=== PATIENT | male | born 1945 | race Caucasian/White ===

== ENCOUNTER 2019-01-08 17:20 | Observation (INO) ==
--- NOTE | 2019-01-08 17:32 | Emergency Department Note ---
Disposition Clinical Impression: New onset atrial fibrillation Disposition: Admitted As Inpatient General Adult HPI - General Stated complaint: tachycardia Time Seen by Provider: 01/08/19 17:24 Source: patient, EMS Mode of arrival: EMS Nursing Notes Reviewed: Yes Vital Signs Reviewed: Yes - History of Present Illness HPI Narrative: Attestation note: Patient was seen with the emergency medicine resident/nurse practitioner/physician academic support assistant/transitional resident/medical student: Dr. NICOLETTE HERNANDEZ I have personally performed a face to face evaluation on this patient. I have reviewed and agree with history and physical examination patient management and disposition. Briefly the salient points of the case are as follows: 74-year-old male patient at the [facility] apparently has been evaluated and worked up for new onset atrial fibrillation. EKG shows atrial fibrillation with rapid ventricular response. Patient has already received bolus dose of Cardizem and placed on drip with rate control. Patient was transferred to [facility] for admission and Cardiologic evaluation. We reviewed the final. Patient's weight is controlled. Patient offers no complaints. Admission disposition pending - Related Data Home Medications Medication Instructions Recorded Confirmed Budesonide/Formoterol 80/4.5 2 puff IH BID 08/12/17 12/29/18 [Symbicort 80/4.5] Cholecalciferol (D-3) [Vitamin D] 1,000 unit PO DAILY 08/12/17 12/29/18 Pravastatin Sodium [Pravachol] 20 mg PO DAILY 08/12/17 12/29/18 Tamsulosin [Flomax] 0.4 mg PO DAILY 08/12/17 12/29/18 glipiZIDE [Glipizide] 2 tab PO BID 08/12/17 12/29/18 hydroCHLOROthiazide 25 mg PO DAILY 08/12/17 12/29/18 [Hydrochlorothiazide] Aspirin [Lo-Dose Aspirin EC] 81 mg PO DAILY 10/28/17 12/29/18 Gabapentin [Gralise] 300 mg PO BID 10/28/17 12/29/18 Losartan Potassium [Cozaar] 50 mg PO DAILY 10/28/17 12/29/18 Sertraline [Zoloft] 100 mg PO DAILY 10/28/17 12/29/18 Previous Rx's Medication Instructions Recorded Amoxicillin/Clavulanate [Augmentin] 875 mg PO BIDWM #20 tablet 12/29/18 predniSONE [PredniSONE] 20 mg PO DAILY #3 tablet 12/29/18 Allergies Allergy/AdvReac Type Severity Reaction Status Date / Time No Known Allergies Allergy Verified 12/29/18 13:23 Past Medical History - Past Medical History Medical history: Reports: COPD, diabetes, hypertension Surgical history: Reports: non-contributory Psychiatric history: Reports: no psych history - Social History Smoking Status: Never smoker Smokeless Tobacco Status: No Alcohol use: Reports: none Drug use: Reports: none
--- NOTE | 2019-01-08 17:36 | Emergency Department Note ---
Disposition Clinical Impression: New onset atrial fibrillation Disposition: Admitted As Inpatient Condition: Fair Time of Disposition: 18:25 General Adult HPI - General Stated complaint: tachycardia Time Seen by Provider: 01/08/19 17:24 Source: patient, EMS Mode of arrival: EMS Limitations: no limitations Nursing Notes Reviewed: Yes Vital Signs Reviewed: Yes - History of Present Illness HPI Narrative: Patient is a 74-year old male who arrived at the ED via EMS for new-onset atrial fibrillation. He was evaluated at the [place] earlier today, where he was noted to be in atrial fibrillation with rapid ventricular rate. He was administered a loading dose of cardizem and started on a cardizem gtt. He was also given 80mg of lovenox prior to transfer to [facility] for admission and further cardiology workup. - Related Data Home Medications Medication Instructions Recorded Confirmed Budesonide/Formoterol 80/4.5 2 puff IH BID 08/12/17 12/29/18 [Symbicort 80/4.5] Cholecalciferol (D-3) [Vitamin D] 1,000 unit PO DAILY 08/12/17 12/29/18 Pravastatin Sodium [Pravachol] 20 mg PO DAILY 08/12/17 12/29/18 Tamsulosin [Flomax] 0.4 mg PO DAILY 08/12/17 12/29/18 glipiZIDE [Glipizide] 2 tab PO BID 08/12/17 12/29/18 hydroCHLOROthiazide 25 mg PO DAILY 08/12/17 12/29/18 [Hydrochlorothiazide] Aspirin [Lo-Dose Aspirin EC] 81 mg PO DAILY 10/28/17 12/29/18 Gabapentin [Gralise] 300 mg PO BID 10/28/17 12/29/18 Losartan Potassium [Cozaar] 50 mg PO DAILY 10/28/17 12/29/18 Sertraline [Zoloft] 100 mg PO DAILY 10/28/17 12/29/18 Previous Rx's Medication Instructions Recorded Amoxicillin/Clavulanate [Augmentin] 875 mg PO BIDWM #20 tablet 12/29/18 predniSONE [PredniSONE] 20 mg PO DAILY #3 tablet 12/29/18 Allergies Allergy/AdvReac Type Severity Reaction Status Date / Time No Known Allergies Allergy Verified 12/29/18 13:23 All systems ED: reviewed and negative except as stated. Constitutional: Denies: fever, chills, weakness, weight change Eyes: Denies: eye pain, eye discharge, vision change Cardiovascular: Denies: chest pain, palpitations, syncope Respiratory: Denies: cough, dyspnea, wheezes, hemoptysis, stridor Past Medical History - Past Medical History Medical history: Reports: COPD, diabetes, hypertension Surgical history: Reports: non-contributory Psychiatric history: Reports: no psych history - Social History Smoking Status: Never smoker Smokeless Tobacco Status: No Alcohol use: Reports: none Drug use: Reports: none Physical Exam - General Limitations: no limitations General appearance: alert, in no apparent distress - Head Head exam: atraumatic, normocephalic, normal inspection - Eye Eye exam: Present: normal appearance, PERRL, EOMI - Neck Neck exam: Present: normal inspection, full ROM, trachea midline - Chest Chest inspection: Present: normal inspection, symmetric chest wall rise - Respiratory Respiratory exam: Present: normal lung sounds bilaterally - Cardiovascular Cardiovascular exam: Present: regular rate, normal rhythm, normal heart sounds Course Course Narrative: Vital signs, laboratory studies, and EKG from [place] reviewed. We will obtain a repeat EKG here in the emergency department. Anticipate hospital admission for further cardiology evaluation. Patient is agreeable with this plan. Case was discussed with hospitalist, Dr. Mejia, who accepted the patient for admission. Vital Signs Temperature 97.9 F 01/08/19 17:34 Pulse Rate 76 01/08/19 17:34 Respiratory Rate 16 01/08/19 17:34 Blood Pressure 110/68 01/08/19 17:34 O2 Sat by Pulse Oximetry 94 01/08/19 17:34 Temperature 98.0 F 01/08/19 18:18 Pulse Rate 74 01/08/19 18:18 Respiratory Rate 18 01/08/19 18:18 Blood Pressure 122/79 01/08/19 18:18 O2 Sat by Pulse Oximetry 95 01/08/19 18:18 Oxygen Delivery Oxygen Delivery Room Air
[2019-01-08] MEDS ORDERED: Dextrose Gel 15 GM/37.5 ML TUBE PO PRN ×2 (20:49)
[2019-01-08] MEDS ORDERED: *HR* Dextrose 50 % in Water (Syg) 50 ML SYRINGE IVP PRN (20:49)
--- NOTE | 2019-01-08 20:55 | Internal Med History&Physical ---
Date of Encounter: 01/08/19 Time of Encounter: 20:54 Internal Medicine - H&P: HPI Chief complaint: high heart rate Admitted From: Home Plans for Post Hospital Care: Home History of present illness: Porter Castro is a 74-year-old morbidly obese male with hypertension and diabetes who went to the [facility] earlier today for a clinic appointment and was found to be in atrial fibrillation with rapid ventricular response. He was sent to their ER where he received a diltiazem bolus followed by a drip and was also given a shot of Lovenox apparent. He was transferred here for further evaluation. My assessment he is lying in bed comfortably and tells me that he has noticed his heart rate being elevated over the last 10 days as he checks his blood pressure with the machine daily for he takes his antihypertensive. He states he has been told in the past he has an irregular heartbeat but not exactly that it was atrial fibrillation or such. He denies any chest pain or shortness of breath. On my review of his current EKG, it appears he is in atrial flutter with a 3:1/4:1 block. Review of prior EKGs showed that he has had first-degree AV blocks, right bundle branch blocks as well as premature atrial complexes. Vitals: Reviewed General: Elderly and obese white male lying in bed in no acute distress. Skin: Warm and supple. HEENT: Moist mucous membranes. No conjunctivae pallor. Neck: No lymphadenopathy. No JVD. No carotid bruits. No palpable thyroid. Chest: Normal thoracic expansion. Normal breath sounds. Clear to auscultation. Heart: Irregularly irregular with no pulse deficit. Abdomen: Protuberant, soft and non-tender to palpation. No peritoneal reaction. Extremities: No clubbing, cyanosis or edema. No calf tenderness. Normal distal pulses. Neurological: Awake, alert and oriented to person, place and time. No focal deficits. Psych: Affect appropriate. Past Med Surg Social Fam HX - Past Medical History Medical history: COPD, diabetes, hypertension Additional medical history: neuropathy. venous insufficiency. PVD Psychiatric history: no psych history - Past Surgical History Surgical History: non-contributory Additional surgical history: PARTIAL THYROIDECTOMY - Social History Smoking Status: Never smoker Smokeless Tobacco Status: No Alcohol use: none Drug use: none Internal Medicine - H&P: Meds Budesonide/Formoterol 80/4.5 [Symbicort 80/4.5] 2 puff IH BID 08/12/17 [History] Cholecalciferol (D-3) [Vitamin D] 4,000 unit PO DAILY 08/12/17 [History] Pravastatin Sodium [Pravachol] 20 mg PO DAILY 08/12/17 [History] Tamsulosin [Flomax] 0.4 mg PO DAILY 08/12/17 [History] glipiZIDE [Glipizide] 2 tab PO BID 08/12/17 [History] hydroCHLOROthiazide [Hydrochlorothiazide] 25 mg PO DAILY 08/12/17 [History] Aspirin [Lo-Dose Aspirin EC] 81 mg PO DAILY 10/28/17 [History] Gabapentin [Gralise] 300 mg PO BID 10/28/17 [History] Losartan Potassium [Cozaar] 50 mg PO DAILY 10/28/17 [History] Sertraline [Zoloft] 100 mg PO DAILY 10/28/17 [History] Cyanocobalamin (B-12) [Vitamin B12] 1,000 mcg PO DAILY 01/08/19 [History] Metformin HCl 1,000 mg PO BIDWM 01/08/19 [History] Metoprolol XL (24 HR) Succ [Toprol XL] 12.5 mg PO DAILY 01/08/19 [History] Urea 1 gm TP BID PRN 01/08/19 [History] Allergy/AdvReac Type Severity Reaction Status Date / Time No Known Allergies Allergy Verified 12/29/18 13:23 All Systems PM: A 10-system review of systems was performed and is negative for pertinent findings except as documented above in the HPI. Family history reviewed and found non-contributory. - Constitutional Vitals: Temp Pulse Resp BP Pulse Ox 98.0 F 74 19 122/73 95 01/08/19 18:18 01/08/19 18:18 01/08/19 20:24 01/08/19 20:24 01/08/19 18:18 Exam: . - Assessment and Plan (1) Atrial fibrillation and flutter Current Visit: Yes Status: Acute Assessment and plan: [id number] score of 3. Received 1 dose of LMWH prior to transfer here. Current heart rate is controlled and therefore will not continue with diltiazem drip. Will start oral medications tonight and place on rivaroxaban. Cardiology consult recommended. (2) Diabetes mellitus Current Visit: Yes Status: Chronic Assessment and plan: Will place on insulin sliding scale. Qualifiers: Diabetes mellitus type: type 2 Diabetes mellitus penitentiary insulin use: without penitentiary use Diabetes mellitus complication status: with unspecified complications Qualified Code(s): E11.8 - Type 2 diabetes mellitus with unspecified complications (3) HTN (hypertension) Current Visit: Yes Status: Acute Assessment and plan: Will resume home oral antihypertensive therapy once reconciled. Qualifiers: Hypertension type: essential hypertension Qualified Code(s): I10 - Essential (primary) hypertension (4) Obesity Current Visit: Yes Status: Acute Assessment and plan: Counseled and educated on therapeutic lifestyle changes for weight loss as it will be of benefit in controlling comorbidities. Teacher Hearing Impaired evaluation advised. Qualifiers: Obesity type: due to excess calories Obesity classification: adult class 3 (BMI >= 40) Serious obesity comorbidity presence: with serious comorbidity Body mass index: BMI 40.0-44.9 Qualified Code(s): E66.01 - Morbid (severe) obesity due to excess calories; Z68.41 - Body mass index (BMI) 40.0-44.9, adult - Time Spent With Patient Total time spent is greater than 50% in coordination of care (as documented) at patient's floor/unit and/or counseling patient: Greater than 35 minutes
[2019-01-08 21:20] LABS: Basophils % 0.3 %; Eosinophils % 0.1 %; Hematocrit 39.8 % (37.5-50.1); Hemoglobin 13.1 g/dL (12.9-16.9); Immature Granulocytes % 0.5 % (0-4); Lymphocytes # 1.8 K/mcL (0.6-4.6); Lymphocytes % 24.7 %; Mean Corpuscular HGB Conc 32.9 g/dL (31.6-35.5); Mean Corpuscular Hemoglobin 29.6 pg (28.0-33.3); Mean Platelet Volume 11.3 fL (9.4-12.4); Monocytes # 0.8 K/mcL (0.0-1.3); Monocytes % 11.2 %; Neutrophils # 4.6 K/mcL (1.6-8.9); Platelet Count 243 K/mcL (140-400); Red Blood Count 4.42 M/mcL (4.19-5.50); Red Cell Distribution Width 13.7 % (11.5-14.5); Segmented Neutrophils % 63.2 %
[2019-01-08] MEDS: Insulin LISPRO 300 UNITS/3 ML VIAL SQ SCH (21:24)
[2019-01-08] MEDS: Gabapentin 300 MG CAPSULE PO SCH (21:24)
[2019-01-08 21:27] LABS: INR 1.1
[2019-01-08 21:28] LABS: Heparin anti-factor XA LMWH 0.23 IU/mL (0.50-1.10); Heparin anti-factor XA UFH 0.23 IU/mL (0.30-0.70)
[2019-01-08 21:30] LABS: Activated Partial Thrombo Time 31.8 Seconds (26.0-36.0)
[2019-01-08 21:38] LABS: BUN/Creatinine Ratio 18 (6-26); Blood Urea Nitrogen 13 mg/dL (8-23); Calcium 9.2 mg/dL (8.6-10.3); Carbon Dioxide 26 mEq/L (23-29); Chloride 104 mEq/L (98-107); Glucose 134 mg/dL (70-105); Osmolality,Calculated 288 (280-300); Potassium 3.5 mEq/L (3.5-5.1); Sodium 138 mEq/L (136-145); eGFR For Non-African Americans > 60 (> 60)
[2019-01-08 21:39] LABS: Magnesium 1.9 mg/dL (1.6-2.6); Troponin I < 0.03 ng/mL (< 0.04)
[2019-01-08 21:52] LABS: Thyroid Stimulating Hormone 0.301 mcIU/mL (0.340-5.600)
[2019-01-08] MEDS: Budesonide/Formoterol 80/4.5 MDI IH SCH (22:26)
[2019-01-09] MEDS ORDERED: 0.9 % Sodium Chloride 1,000 ML ONE (01:00)
[2019-01-09] MEDS ORDERED: Enoxaparin Weight Dosing SQ SCH (06:00)
[2019-01-09] MEDS: Budesonide/Formoterol 80/4.5 MDI IH SCH ×2 (07:42→21:08)
--- NOTE | 2019-01-09 08:16 | Cardiology Consult Note ---
Addendum entered and electronically signed by Dru De Jesus DO 01/09/19 13:09: Updated Assessment and Plan (1) (HFpEF) heart failure with reduced ejection fraction Current Visit: No Status: Chronic Echo revealed LVEF 35%, moderate global LV systolic dysfunction, mildly dilated left ventricle, indeterminate diastolic function, there is no LV thrombus. Definity echo contrast was used. RV is mildly dilated with moderate systolic dysfunction. Bi-atrial enlargement. Mild-moderate mitral regurgitation. Mild- moderate tricuspid regurgitation. Mild pulmonary hypertension. Since prior echo, 05/14/2016, current findings are new. Echo findings are concerning for ischemia. Continue home beta howard, ARB, and HCTZ. Start Heparin drip, bridging to Coumadin. NPO after midnight, anticipate [facility] tomorrow. Qualifiers: Heart failure chronicity: chronic Qualified Code(s): Chronic systolic (congestive) heart failure Addendum entered and electronically signed by Dru De Jesus DO 01/09/19 13:07: Given the patient's elevated BMI > 40, will not recommend Xarelto for A. fib anticoagulation. Patient agreed to starting Coumadin instead. Pharmacy to dose. Original Note: <Dru De Jesus - Last Filed: 01/09/19 10:43> Date of Encounter: 01/09/19 Time of Encounter: 08:13 Assessment and Plan (1) New onset atrial fibrillation Current Visit: Yes Status: Acute [facility]. Current heart rate is in the 70s status post Cardizem administration in the ED. [facility] 10/31/18: Minimal atherosclerotic coronary artery disease. Echo pending [id number] Score 5 (age, CHF, hypertension, diabetes, vascular disease) Patient was started on Xarelto for anticoagulation. Continue home dose of Metoprolol. (2) (HFpEF) heart failure with preserved ejection fraction Current Visit: No Status: Chronic Echo 05/14/16 revealed technically challenging study due to suboptimal image quality and frequent ventricular ectopy in a bigeminal pattern, LV systolic function appears low normal, EF 50-55%, evidence of mild diastolic dysfunction of the left ventricle, moderately dilated RV with normal function, mildly dilated RA and LA, mild tricuspid regurgitation, estimated RVSP was 32 mmHg, and no pulmonary hypertension. Repeat Echo pending Continue home beta howard, ARB, and HCTZ. Qualifiers: Heart failure chronicity: chronic Qualified Code(s): I50.32 - Chronic diastolic (congestive) heart failure (3) History of partial thyroidectomy Current Visit: Yes Status: Acute Patient with history of partial thyroidectomy due to thyroid nodule. TSH level 0.301 Management per primary team (4) HTN (hypertension) Current Visit: No Status: Chronic Blood pressure controlled. Continue home beta howard, ARB, and HCTZ. Qualifiers: Hypertension type: essential hypertension Qualified Code(s): I10 - [place] l (primary) hypertension (5) Hyperlipidemia Current Visit: No Status: Chronic Continue statin. Qualifiers: Hyperlipidemia type: unspecified Qualified Code(s): E78.5 - Hyperlipidemia, unspecified (6) Diabetes mellitus Current Visit: Yes Status: Chronic Management per primary team. Qualifiers: Diabetes mellitus type: type 2 Diabetes mellitus rat exterminator insulin use: without rat exterminator use Diabetes mellitus complication status: with unspecified complications Qualified Code(s): E11.8 - Type 2 diabetes mellitus with unspecified complications (7) Morbid obesity with BMI of 40.0-44.9, adult Current Visit: Yes Status: Chronic Lifestyle modification. (8) CHASIDY on CPAP Current Visit: Yes Status: Chronic Recommend optimizing treatment for CHASIDY in setting of new-onset A. fib. He wears a CPAP at night. Discussion w patient/family: The assessment and plan as outlined above was discussed with the patient and/or family members who expressed understanding and agreement. All questions were answered. Thank you for involving us in the care of your patient. Please call with any questions. History of Present Illness Consult date: 01/08/19 Requesting physician: Glenroy Sandoval Consult reason: New-onset atrial flutter/fibrillation Chief complaint: High heart rate History of present illness: Mr. Castro is a 74 [facility] with a past medical history hypertension, hyperlipidemia, diastolic CHF, peripheral vascular disease, diabetes mellitus type 2, CHASIDY on CPAP, and morbid obesity who was transferred from the [facility] secondary to A. fib RVR. Patient reports a history of irregular heart rhythm in the past and states his heart rate has been racing for the past 10 days. He was started on Augmentin and Prednisone for bronchitis 10 days ago at urgent care. Patient any current fever, chills, chest pain, shortness of breath, or leg swelling. Current heart rate is in the 70s status post Cardizem administration in the ED. Since admission, patient was started on Xarelto for anticoagulation and his home dose of Metoprolol was resumed. Repeat echo was ordered and cardiology was consulted for further recommendations. Previous testing: [facility] 10/31/18: Minimal atherosclerotic coronary artery disease. TTE 05/14/16 revealed technically challenging study due to suboptimal image qualit y and frequent ventricular ectopy in a bigeminal pattern, LV systolic function appears low normal, EF 50-55%, evidence of mild diastolic dysfunction of the left ventricle, moderately dilated RV with normal function, mildly dilated RA and LA, mild tricuspid regurgitation, estimated RVSP was 32 mmHg, and no pulmonary hypertension. Holter monitoring 09/19/17: Diary retured without symptoms, frequent PVCs, 8 brief episodes of NSVT, longest 3 beats, rare PACs. Average HR 76 bpm. No significant bradycardia. Past Med Surg Social Fam HX - Past Medical History Medical history: COPD, diabetes, hypertension Additional medical history: neuropathy. venous insufficiency. PVD Psychiatric history: no psych history - Past Surgical History Surgical History: non-contributory Additional surgical history: PARTIAL THYROIDECTOMY - Social History Smoking Status: Never smoker Smokeless Tobacco Status: No Alcohol use: none Drug use: none - Family History Mother Adopted: No Living Status: Cause of : cancer Hx Family Cardiac Disorders: Yes (dad unknown) Hx Family Respiratory Disorders: No Hx Family Cancer: Yes (mother unknown) Hx Family GI Disorders: No Hx Family Genitourinary Disorders: No Hx Family Endocrine Disorder: Yes (aunt thyroid disease) Hx Family Musculoskeletal Disorders: No Hx Family Neuromuscular Disorders: No Hx Family Neurologic Disorders: No Hx Family HEENT Disorders: No Hx Family Autoimmune Disorders: No Hx Family Reproductive Disorders: No Hx Family Psychosocial Disorders: No Hx Family Medical Disorders: No Father Living Status: Medications and Allergies Budesonide/Formoterol 80/4.5 [Symbicort 80/4.5] 2 puff IH BID 08/12/17 [History] Cholecalciferol (D-3) [Vitamin D] 4,000 unit PO DAILY 08/12/17 [History] Pravastatin Sodium [Pravachol] 20 mg PO DAILY 08/12/17 [History] Tamsulosin [Flomax] 0.4 mg PO DAILY 08/12/17 [History] glipiZIDE [Glipizide] 2 tab PO BID 08/12/17 [History] hydroCHLOROthiazide [Hydrochlorothiazide] 25 mg PO DAILY 08/12/17 [History] Aspirin [Lo-Dose Aspirin EC] 81 mg PO DAILY 10/28/17 [History] Gabapentin [Gralise] 300 mg PO BID 10/28/17 [History] Losartan Potassium [Cozaar] 50 mg PO DAILY 10/28/17 [History] Sertraline [Zoloft] 100 mg PO DAILY 10/28/17 [History] Cyanocobalamin (B-12) [Vitamin B12] 1,000 mcg PO DAILY 01/08/19 [History] Metformin HCl 1,000 mg PO BIDWM 01/08/19 [History] Metoprolol XL (24 HR) Succ [Toprol XL] 12.5 mg PO DAILY 01/08/19 [History] Urea 1 gm TP BID PRN 01/08/19 [History] Allergy/AdvReac Type Severity Reaction Status Date / Time No Known Allergies Allergy Verified 12/29/18 13:23 All Systems Review: The remainder of the systems were reviewed and are negative - Constitutional Constitutional: fatigue, no chills, no fever(s), no malaise - EENT Nose, mouth and throat: no dysphagia, no sore throat - Cardiovascular Cardiovascular: irregular heart rhythm, palpitations, rapid heart rate, no chest pain at rest, no chest pain with exertion, no diaphoresis, no dyspnea at rest, no dyspnea on exertion, no lightheadedness - Respiratory Respiratory: no cough, no dyspnea - Gastrointestinal Gastrointestinal: no abdominal pain, no diarrhea, no nausea - Genitourinary Genitourinary: no dysuria, no hematuria - Musculoskeletal Musculoskeletal: no back pain, no myalgias - Integumentary Integumentary: no erythema, no rash - Neurological Neurological: no dizziness, no numbness, no syncope - Psychiatric Psychiatric: no anxiety, no depression - Hematological/Lymphatic Hematologic/Lymphatic: no easy bleeding, no easy bruising Physical Examination Vital Signs, Last 4 Hours Temp Pulse Resp BP Pulse Ox 01/09/19 05:12 97.9 F 64 18 108/66 96 General: Conversant, No Apparent Distress (Morbidly obese) HEENT: Atraumatic, Normocephaly, Mucus Membranes Moist Neck: No JVD, Normal carotid pulses Cardiac: Normal S1 and S2, No Murmur Lungs: Normal Breath Sounds, No Wheeze, Rales, Rhonchi Neuro: Alert and responsive, No focal deficits noted Abdomen: Soft Skin: No rashes noted on visualized skin, Other (small 0.5 cm abrasion dorasl right foot, well-healed) Musculoskeletal: No Chest Wall Tenderness Extremities: No Clubbing, No Cyanosis, No Edema, Normal Pulses Results 01/08/19 20:57 01/08/19 20:57 Lab Results 01/08/19 01/08/19 01/08/19 20:57 20:57 20:57 WBC 7.3 Hgb 13.1 Hct 39.8 Plt Count 243 INR 1.1 APTT 31.8 Sodium 138 Potassium 3.5 Chloride 104 Carbon Dioxide 26 BUN 13 Creatinine 0.72 Glucose 134 H Calcium 9.2 Magnesium Troponin I < 0.03 TSH 01/08/19 20:57 WBC Hgb Hct Plt Count INR APTT Sodium Potassium Chloride Carbon Dioxide BUN Creatinine Glucose Calcium Magnesium 1.9 Troponin I TSH 0.301 L - Imaging and Cardiology Chest Xray: report reviewed - EKG Interpretation EKG results cardiology: personally reviewed (Atrial flutter HR 81, RBBB) Consult Discharge Plan - Plan [facility]Primary Care Provider[facility] - < A - Last Filed: 01/09/19 13:43> Date of Encounter: 01/09/19 - Attending Attestation I have personally performed a face to face evaluation on this patient. I have reviewed and agree with the documented findings and care plan as documented by the resident. History and Exam by me shows: 74-year-old pleasant gentleman with history of nonobstructive CAD with most recent cath being October 2017, hypertension, diabetes, admitted for A. fib with RVR Morbidly obese, AAOX3 in NAD at the bedside Hemodynamically stable Cardiopulmonary exam revealed S1, S2, no murmur; clear lungs Rhythm reviewed - a flutter with variable block, no acute ST T changes Echo revealed LVEF of 35%, mild to moderate MR and TR Impression/plan: A. flutter. Now rate controlled. Continue rate control with Toprol, Coumadin for long-term anticoagulation given BMI of > 40 New LV dysfunction. Possibly from tachycardia-induced cardiomyopathy however we need to rule out coronary ischemia. Recommend left heart catheterization prior to discharge. If LHC is not remarkable, recommend FORREST cardioversion for A. fib Morbid Obesity/ sleep disordered breathing. We need sleep study as outpatient Thanks, Mitchell Ramos MD [facility] Assessment and Plan Discussion w patient/family: The assessment and plan as outlined above was discussed with the patient and/or family members who expressed understanding and agreement. All questions were answered. Thank you for involving us in the care of your patient. Please call with any questions. History of Present Illness History of present illness: Mr. Castro is a 74 year old male All Systems Review: The remainder of the systems were reviewed and are negative Physical Examination Vital Signs, Last 4 Hours Temp Pulse Resp BP Pulse Ox 01/09/19 11:00 97.6 F 81 20 111/72 94 Results 01/08/19 20:57 01/08/19 20:57 Lab Results 01/08/19 01/08/19 01/08/19 20:57 20:57 20:57 WBC 7.3 Hgb 13.1 Hct 39.8 Plt Count 243 INR 1.1 APTT 31.8 Sodium 138 Potassium 3.5 Chloride 104 Carbon Dioxide 26 BUN 13 Creatinine 0.72 Glucose 134 H Calcium 9.2 Magnesium Troponin I < 0.03 TSH 01/08/19 20:57 WBC Hgb Hct Plt Count INR APTT Sodium Potassium Chloride Carbon Dioxide BUN Creatinine Glucose Calcium Magnesium 1.9 Troponin I TSH 0.301 L
[2019-01-09] MEDS: Insulin LISPRO 300 UNITS/3 ML VIAL SQ SCH ×4 (09:19→21:24)
[2019-01-09] MEDS: Cholecalciferol (D-3) 1,000 UNIT TABLET PO SCH (09:20)
[2019-01-09] MEDS: Metoprolol XL (24 HR) Succ 25 MG TAB.ER.24H PO SCH (09:20)
[2019-01-09] MEDS: Aspirin Enteric Coated 81 MG Tablet PO SCH (09:20)
[2019-01-09] MEDS: hydroCHLOROthiazide 25 MG TABLET PO SCH (09:20)
[2019-01-09] MEDS: Gabapentin 300 MG CAPSULE PO SCH ×2 (09:20→20:09)
[2019-01-09] MEDS ORDERED: Perflutren Lipid Microsphere 1.3 ML in 0.9 % Sodium Chloride 8.7 ML IVP ONE (10:30)
[2019-01-09] MEDS ORDERED: *HR* Heparin 5,000 UNIT/ML VIAL IVP ONE (13:19)
[2019-01-09] MEDS ORDERED: *HR* Heparin 5,000 UNIT/ML VIAL IVP PRN (13:19)
[2019-01-09 13:52] LABS: Hematocrit 36.8 % (37.5-50.1); Hemoglobin 12.4 g/dL (12.9-16.9); Mean Corpuscular HGB Conc 33.7 g/dL (31.6-35.5); Mean Corpuscular Hemoglobin 30.2 pg (28.0-33.3); Mean Corpuscular Volume 89.8 fL (83.0-100.0); Mean Platelet Volume 11.2 fL (9.4-12.4); Platelet Count 230 K/mcL (140-400); Red Cell Distribution Width 13.7 % (11.5-14.5)
[2019-01-09 14:03] LABS: INR 1.1; Prothrombin Time 12.5 Seconds (9.4-12.1)
[2019-01-09] MEDS: Heparin 25,000 UNIT/250 ML D5W 25,000 UNIT/250 ML IV.SOLN IVC SCH (14:15)
[2019-01-09] MEDS ORDERED: *HR* Rivaroxaban 10 MG TABLET PO SCH (17:00)
[2019-01-09] MEDS ORDERED: *HR* Warfarin 5 MG TABLET PO ONE (18:00)
[2019-01-09] MEDS ORDERED: Warfarin perPT PO PRN (18:00)
--- NOTE | 2019-01-09 19:30 | Internal Med Progress Note ---
Hospitalist Progress Note - Encounter Date of Encounter: 01/09/19 Time of Encounter: 11:00 - Subjective Interval History: Patient presented with new onset of A. fib with RVR found to have ascending reduced heart failure ejection fraction on echocardiogram. - Exam Vitals: Temp Pulse Resp BP Pulse Ox 97.5 F L 64 20 109/80 94 01/09/19 15:38 01/09/19 15:38 01/09/19 15:38 01/09/19 15:38 01/09/19 15:38 Exam: Gen.: Nonacute distress, alert and oriented 3 ENT: Mucosal membranes moist Respiratory: Lungs are clear to auscultation bilaterally without any wheezing rhonchi or rales Cardiovascular: Normal S1 and S2 regular rate rhythm no murmurs rubs or gallops Abdomen: Soft, nontender and nondistended with positive bowel sounds Extremities: No lower extremity edema Skin: Normal color . - Assessment and Plan (1) New onset atrial fibrillation Current Visit: Yes Status: Acute Assessment and Plan: Cardiology consulted with recommendations to continue heparin drip (2) Diabetes mellitus Current Visit: Yes Status: Chronic Assessment and Plan: Continue insulin sliding scale. (3) HTN (hypertension) Current Visit: No Status: Chronic Assessment and Plan: Continue home meds. (4) Morbid obesity with BMI of 40.0-44.9, adult Current Visit: Yes Status: Chronic Assessment and Plan: BMI of 43.8 (5) Hyperlipidemia Current Visit: No Status: Chronic Assessment and Plan: Continue statin (6) History of partial thyroidectomy Current Visit: Yes Status: Acute Assessment and Plan: Will consider initiating levothyroxine for low TSH (7) (HFpEF) heart failure with preserved ejection fraction Current Visit: No Status: Chronic Assessment and Plan: Patient was found to have repeat use ejection fraction compared to last echocardiogram with recommendations for left heart catheterization per cardiology (8) CHASIDY on CPAP Current Visit: Yes Status: Chronic Assessment and Plan: CPAP at night DVT Prophylaxis: On heparin drip - Time Spent with Patient Total time spent is greater than 50% in coordination of care (as documented) at patient's floor/unit and/or counseling patient: Internal Medicine: Result - Labs CBC & Chem 7: 01/09/19 13:30 01/08/19 20:57 Labs: Short CBC 01/08/19 01/09/19 Range/Units 20:57 13:30 WBC 7.3 6.2 (4.3-11.1) K/mcL Hgb 13.1 12.4 L (12.9-16.9) g/dL Hct 39.8 36.8 L (37.5-50.1) % Plt Count 243 230 (140-400) K/mcL Neutrophils # 4.6 (1.6-8.9) K/mcL BMP 01/08/19 20:57 Sodium 138 Potassium 3.5 Chloride 104 Carbon Dioxide 26 BUN 13 Creatinine 0.72 Glucose 134 H Calcium 9.2 Cardiac Enzymes 01/08/19 Range/Units 20:57 Troponin I < 0.03 (< 0.04) ng/mL - ABG Interpretation ABG results: PT/INR, D-dimer PT 12.5 Seconds (9.4-12.1) H 01/09/19 13:30 - Impressions Impressions Echocardiogram 01/09/19 10:00 Impressions: LVEF 35%. Moderate global LV systolic dysfunction. Mildly dilated left ventricle. Indeterminate diastolic function. There is no LV thrombus. Definity echo contrast was used. RV is mildly dilated with moderate systolic dysfunction. Bi-atrial enlargement. Mild-moderate mitral regurgitation. Mild-moderate tricuspid regurgitation. Mild pulmonary hypertension. Since prior echo, 05/14/2016, current findings are new. Findings: Study Quality * Technically adequate exam. ECG Findings * Atrial flutter. Left Ventricle * LVEF 35%. * Mildly dilated left ventricle. * Indeterminate diastolic function. * There is no LV thrombus. * Definity echo contrast was used. Right Ventricle * RV is mildly dilated with moderate systolic dysfunction. Left Atrium * Moderate-severely dilated left atrium. Right Atrium * Moderately dilated right atrium. Aortic Valve * No aortic regurgitation. * Trileaflet aortic valve. * No aortic stenosis. Mitral Valve * Normal mitral valve structure. * No mitral stenosis. * Mild-moderate mitral regurgitation. Tricuspid Valve * Tricuspid valve not well visualized. * Mild-moderate tricuspid regurgitation. * Estimated RA pressure is 20 mmHg. * Estimated RVSP is 41 mmHg. * Mild pulmonary hypertension. Pulmonic Valve * Pulmonic valve is not well visualized. * No pulmonic stenosis. * No pulmonic regurgitation. Pulmonary Artery * Pulmonary artery not well visualized. Aorta * Normally sized aortic root. Pericardium * There is no pericardial effusion present. Interatrial Septum * No evidence of PFO by color Doppler. IVC * < 50% respiratory change. * The IVC is dilated. Consult Discharge Plan - Plan [facility]errals: [facility] [Primary Care Provider] - (2) Diabetes mellitus Qualifiers: Diabetes mellitus type: type 2 Diabetes mellitus mcc insulin use: without welding operator use Diabetes mellitus complication status: with unspecified complications Qualified Code(s): E11.8 - Type 2 diabetes mellitus with unspecified complications (3) HTN (hypertension) Qualifiers: Hypertension type: essential hypertension Qualified Code(s): I10 - Essential (primary) hypertension (5) Hyperlipidemia Qualifiers: Hyperlipidemia type: unspecified Qualified Code(s): E78.5 - Hyperlipidemia, unspecified (7) (HFpEF) heart failure with preserved ejection fraction Qualifiers: Heart failure chronicity: chronic Qualified Code(s): I50.32 - Chronic diastolic (congestive) heart failure
[2019-01-09] MEDS: *HR* Heparin 5,000 UNIT/ML VIAL IVP PRN (22:15)
[2019-01-10 05:40] LABS: INR 1.1; Prothrombin Time 12.1 Seconds (9.4-12.1)
[2019-01-10] MEDS: *HR* Heparin 5,000 UNIT/ML VIAL IVP PRN (05:55)
[2019-01-10] MEDS ORDERED: Heparin 25,000 UNIT/250 ML D5W 25,000 UNIT/250 ML IV.SOLN IVC SCH (06:15)
[2019-01-10 07:40] LABS: Basophils % 0.3 %; Eosinophils % 0.2 %; Hematocrit 39.3 % (37.5-50.1); Hemoglobin 13.1 g/dL (12.9-16.9); Immature Granulocytes % 0.5 % (0-4); Lymphocytes # 1.5 K/mcL (0.6-4.6); Lymphocytes % 25.2 %; Mean Corpuscular HGB Conc 33.3 g/dL (31.6-35.5); Mean Corpuscular Volume 90.1 fL (83.0-100.0); Mean Platelet Volume 11.1 fL (9.4-12.4); Monocytes # 0.7 K/mcL (0.0-1.3); Monocytes % 12.5 %; Neutrophils # 3.6 K/mcL (1.6-8.9); Platelet Count 217 K/mcL (140-400); Red Blood Count 4.36 M/mcL (4.19-5.50); Red Cell Distribution Width 13.6 % (11.5-14.5); Segmented Neutrophils % 61.3 %
[2019-01-10 07:51] LABS: BUN/Creatinine Ratio 15 (6-26); Blood Urea Nitrogen 10 mg/dL (8-23); Calcium 9.2 mg/dL (8.6-10.3); Carbon Dioxide 28 mEq/L (23-29); Chloride 103 mEq/L (98-107); Glucose 172 mg/dL (70-105); Osmolality,Calculated 291 (280-300); Potassium 3.9 mEq/L (3.5-5.1); Sodium 139 mEq/L (136-145); eGFR For Non-African Americans > 60 (> 60)
[2019-01-10] MEDS: Budesonide/Formoterol 80/4.5 MDI IH SCH ×2 (07:57→20:06)
[2019-01-10] MEDS: Cholecalciferol (D-3) 1,000 UNIT TABLET PO SCH (09:06)
[2019-01-10] MEDS: Gabapentin 300 MG CAPSULE PO SCH ×2 (09:06→21:19)
[2019-01-10] MEDS: hydroCHLOROthiazide 25 MG TABLET PO SCH (09:06)
[2019-01-10] MEDS: Metoprolol XL (24 HR) Succ 25 MG TAB.ER.24H PO SCH (09:06)
[2019-01-10] MEDS: Aspirin Enteric Coated 81 MG Tablet PO SCH (09:06)
[2019-01-10] MEDS: Heparin 25,000 UNIT/250 ML D5W 25,000 UNIT/250 ML IV.SOLN IVC SCH ×2 (09:06→09:13)
[2019-01-10] MEDS: Insulin LISPRO 300 UNITS/3 ML VIAL SQ SCH ×4 (09:15→21:16)
[2019-01-10] MEDS ORDERED: *HR* Heparin 10,000 UNIT/10 ML VIAL ONE (09:34)
[2019-01-10] MEDS ORDERED: Heparin 1,000 UNITS/500 mL 500 ML ONE (09:34)
[2019-01-10] MEDS ORDERED: 0.9 % Sodium Chloride 1,000 ML ONE (09:35)
[2019-01-10] MEDS ORDERED: Nitroglycerin 1,000 MCG/10 ML VIAL IV ONE (09:35)
[2019-01-10] MEDS ORDERED: Verapamil 5 MG/2 ML VIAL ONE (09:42)
[2019-01-10] MEDS ORDERED: *HR* FentaNYL (PF) 100 MCG/2 ML VIAL ONE (10:25)
[2019-01-10] MEDS ORDERED: *HR* Midazolam HCl 2 MG/2 ML VIAL ONE (10:25)
--- NOTE | 2019-01-10 10:29 | Pre-Sedation Evaluation ---
Pre-sedation evaluation - Pre-sedation checklist Date of procedure: 01/10/19 Procedure: [facility] Recent Vitals: Last Vital Signs Temp 97.5 F L 01/10/19 07:33 Pulse 69 01/10/19 07:33 Resp 14 01/10/19 07:59 BP 110/66 01/10/19 07:33 Pulse Ox 95 01/10/19 07:59 H&P (including ROS) documented in medical record: Yes Previous reaction to sedatives/anesthetics: No Dietary Status: NPO after Midnight Dentition: No loose teeth or bridges ASA Classification *see protocol: CLASS II-Mild systemic disease Plan of Care: Pt appropriate candidate for procedure/moderate/conscious sedation, Risks/benefits of procedure/sedation discussed w/ patient/family Cardiac Registry (Cardio Only) - Functional Capacity Functional Capacity: >=4 METS with symptoms - Clincal Frailty Scale Clinical Frailty Scale: Managing Well
--- NOTE | 2019-01-10 10:31 | Internal Med Progress Note ---
Hospitalist Progress Note - Encounter Date of Encounter: 01/10/19 Time of Encounter: 11:00 - Subjective Interval History: Patient scheduled for left heart catheterization due to worsening LVEF on echocardiogram Patient also started on Coumadin and being bridged with heparin due to new onset of A. fib ([id number] Score 5). - Exam Vitals: Temp Pulse Resp BP Pulse Ox 97.5 F L 69 14 110/66 95 01/10/19 07:33 01/10/19 07:33 01/10/19 07:59 01/10/19 07:33 01/10/19 07:59 Exam: Gen.: Nonacute distress, alert and oriented 3 ENT: Mucosal membranes moist Respiratory: Lungs are clear to auscultation bilaterally without any wheezing rhonchi or rales Cardiovascular: Normal S1 and S2 regular rate rhythm no murmurs rubs or gallops Abdomen: Soft, nontender and nondistended with positive bowel sounds Extremities: No lower extremity edema Skin: Normal color . - Assessment and Plan (1) (HFpEF) heart failure with preserved ejection fraction Current Visit: No Status: Chronic Assessment and Plan: Echocardiogram showed LVEF of 35% with moderate global left ventricular systolic dysfunction Cardiology consulted with recommendations for left heart catheterization (2) New onset atrial fibrillation Current Visit: Yes Status: Acute Assessment and Plan: Rate controlled on beta howard Patient started on Coumadin and being bridged with heparin due to new onset of A. fib ([id number] Score 5). Cardiology following and appreciate recommendations (3) HTN (hypertension) Current Visit: No Status: Chronic Assessment and Plan: Continue beta howard and ARB (4) Diabetes mellitus Current Visit: Yes Status: Chronic Assessment and Plan: Continue insulin sliding scale. (5) Hyperlipidemia Current Visit: No Status: Chronic Assessment and Plan: Continue statin (6) History of partial thyroidectomy Current Visit: Yes Status: Acute Assessment and Plan: Will consider initiating levothyroxine for low TSH (7) CHASIDY on CPAP Current Visit: Yes Status: Chronic Assessment and Plan: CPAP at night (8) Morbid obesity with BMI of 40.0-44.9, adult Current Visit: Yes Status: Chronic Assessment and Plan: BMI of 43.8 DVT Prophylaxis: Patient on Coumadin being bridged with heparin as above - Time Spent with Patient Total time spent is greater than 50% in coordination of care (as documented) at patient's floor/unit and/or counseling patient: Internal Medicine: Result - Labs CBC & Chem 7: 01/10/19 07:21 01/10/19 07:21 Labs: Short CBC 01/09/19 01/10/19 Range/Units 13:30 07:21 WBC 6.2 5.9 (4.3-11.1) K/mcL Hgb 12.4 L 13.1 (12.9-16.9) g/dL Hct 36.8 L 39.3 (37.5-50.1) % Plt Count 230 217 (140-400) K/mcL Neutrophils # 3.6 (1.6-8.9) K/mcL BMP 01/10/19 07:21 Sodium 139 Potassium 3.9 Chloride 103 Carbon Dioxide 28 BUN 10 Creatinine 0.68 L Glucose 172 H Calcium 9.2 - ABG Interpretation ABG results: PT/INR, D-dimer PT 12.1 Seconds (9.4-12.1) 01/10/19 05:04 - Impressions Impressions Echocardiogram 01/09/19 10:00 Impressions: LVEF 35%. Moderate global LV systolic dysfunction. Mildly dilated left ventricle. Indeterminate diastolic function. There is no LV thrombus. Definity echo contrast was used. RV is mildly dilated with moderate systolic dysfunction. Bi-atrial enlargement. Mild-moderate mitral regurgitation. Mild-moderate tricuspid regurgitation. Mild pulmonary hypertension. Since prior echo, 05/14/2016, current findings are new. Findings: Study Quality * Technically adequate exam. ECG Findings * Atrial flutter. Left Ventricle * LVEF 35%. * Mildly dilated left ventricle. * Indeterminate diastolic function. * There is no LV thrombus. * Definity echo contrast was used. Right Ventricle * RV is mildly dilated with moderate systolic dysfunction. Left Atrium * Moderate-severely dilated left atrium. Right Atrium * Moderately dilated right atrium. Aortic Valve * No aortic regurgitation. * Trileaflet aortic valve. * No aortic stenosis. Mitral Valve * Normal mitral valve structure. * No mitral stenosis. * Mild-moderate mitral regurgitation. Tricuspid Valve * Tricuspid valve not well visualized. * Mild-moderate tricuspid regurgitation. * Estimated RA pressure is 20 mmHg. * Estimated RVSP is 41 mmHg. * Mild pulmonary hypertension. Pulmonic Valve * Pulmonic valve is not well visualized. * No pulmonic stenosis. * No pulmonic regurgitation. Pulmonary Artery * Pulmonary artery not well visualized. Aorta * Normally sized aortic root. Pericardium * There is no pericardial effusion present. Interatrial Septum * No evidence of PFO by color Doppler. IVC * < 50% respiratory change. * The IVC is dilated. Consult Discharge Plan - Plan [facility]errals: [facility] [Primary Care Provider] - (1) (HFpEF) heart failure with preserved ejection fraction Qualifiers: Heart failure chronicity: chronic Qualified Code(s): I50.32 - Chronic diastolic (congestive) heart failure (3) HTN (hypertension) Qualifiers: Hypertension type: essential hypertension Qualified Code(s): I10 - Essential (primary) hypertension (4) Diabetes mellitus Qualifiers: Diabetes mellitus type: type 2 Diabetes mellitus jail insulin use: without terminal worker use Diabetes mellitus complication status: with unspecified complications Qualified Code(s): E11.8 - Type 2 diabetes mellitus with unspecified complications (5) Hyperlipidemia Qualifiers: Hyperlipidemia type: unspecified Qualified Code(s): E78.5 - Hyperlipidemia, unspecified
--- NOTE | 2019-01-10 10:58 | Pre-Sedation Evaluation ---
Pre-sedation evaluation - Pre-sedation checklist Date of procedure: 01/10/19 Procedure: [facility] Recent Vitals: Last Vital Signs Temp 97.5 F L 01/10/19 07:33 Pulse 69 01/10/19 07:33 Resp 14 01/10/19 07:59 BP 110/66 01/10/19 07:33 Pulse Ox 95 01/10/19 07:59 H&P (including ROS) documented in medical record: Yes Previous reaction to sedatives/anesthetics: No Dietary Status: NPO after Midnight Dentition: No loose teeth or bridges ASA Classification *see protocol: CLASS II-Mild systemic disease Plan of Care: Pt appropriate candidate for procedure/moderate/conscious sedation, Risks/benefits of procedure/sedation discussed w/ patient/family Cardiac Registry (Cardio Only) - Functional Capacity Functional Capacity: >=4 METS with symptoms - Clincal Frailty Scale Clinical Frailty Scale: Managing Well
--- NOTE | 2019-01-10 11:12 | Event Note ---
Date of Encounter: 01/10/19 Time of Encounter: 11:10 - Cardiology Event Note LHC completed today for new CMP--EF 35%. LHC mild CAD, no intervention warranted. 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 Per Dr. Ramos's recommendation 01/09, if unremarkable LHC, recommended FORREST/DCCV in attempt to restore SR. Plan for possible FORREST/DCCV on Saturday. Will follow-up with pt tomorrow. Currently on heparin gtt. Started on Coumadin with pharmacy to dose. Goal INR 2- 3.
--- NOTE | 2019-01-10 11:17 | Invasive Diagnostic Lab Proc ---
Name: Porter Castro Date of Study: 01/10/2019 Date: 1945 Ht: 70.9in Medical Record#: [id number] Age: 74 Wt: 315.26lb Gender: Male BSA: 2.56 Order #: [id number] BMI: 44.14 Physicians Procedure Physician: Artur Wallis MD, [facility] Referring MD: Referring MD: Staff Name Position Time In IsabelleElina RN Monitor 10:27 AM Kiet Lamar RN Documentation Manager 10:27 AM Sara Eaton RT Scrub 10:27 AM Ever Ford RN Documentation Manager 10:29 AM Procedures Performed Procedure L HRT ARTERY/VENTRICLE ANGIO Pre-Procedure Checklist Informed consent is complete signed and on chart. H&P is on chart. ID band is on and ID verified with patient. Patient NPO for procedure The procedure was described for the patient and questions were answered. Blood Pressure: 134/84 ECG is on chart. Rhythm: Atrial Fibrillation Plan of Care Patient will tolerate the procedure without complications. Adequate level of comfort will be maintained. Hemodynamics will remain stable Patient will recover from procedure without complications. Respiratory function will be maintained. Cardiac rhythm will remain stable. Patient temperature will be maintained. Patient and/or family have verbalized understanding of the procedure. Patient Education Chief Complaint/Reason for Test: Cardiac Cath Developmental Category: Geriatric (65+ years) Developmentally Appropriate for Age: Yes Learning Barriers: None Education Needs: Procedure Education Method: Verbal Information Taught: Cardiac Cath Educational Evaluation: Able to repeat information Intravenous Access Time IV Size Location DC'd Fluid/Drip Rate Units RN 10:26 AM 20g 1 1/" Patent On Arrival 0.9NaCl ml/hr Allergies No Known Allergies Vital Signs Time BP (mmHg) HR (bpm) O2 Sat. RR (bpm) LOC 10:27 AM / % 5 = Fully awake and oriented or at pre-proc level 10:27 AM / % 4 = Oriented but drowsy 10:42 AM / % 4 = Oriented but drowsy 10:29 AM 128 / 95 86 93 % 11 10:35 AM 134 / 84 65 92 % 20 10:40 AM 127 / 80 65 92 % 20 10:45 AM 115 / 72 67 87 % 23 10:46 AM 115 / 68 89 89 % 26 10:50 AM 110 / 66 86 89 % 20 10:55 AM 124 / 82 86 91 % 21 Procedural Medications Time Medication Dose Units Method Given By 10:28 AM Oxygen 2 L/min nasal cannula Keit Lamar RN 10:35 AM Versed 2 mg Intravenous Kiet Lamar RN 10:35 AM Fentanyl 50 mcg Intravenous Kiet Lamar RN 10:35 AM Lidocaine 2% 0.5 ml Subcutaneous Artur Wallis MD, FACC 10:43 AM Heparin 1000 units Nitroglycerin 200 mcg Verapamil 2.5 mg Intraarterial Artur Wallis MD, [facility] ASA Classification: CLASS II- Mild systemic disease (i.e. well-controlled diabetes, hypertension, asthma, cigarette smoking) Sue Score Preprocedure Postprocedure Activity 2- Moves 4 extremities sustained head lift Activity 2- Moves 4 extremities sustained head lift Circulation 2- SBP +/= 20 points of pre-anesthetic level Circulation 2- SBP +/= 20 points of pre-anesthetic level Consciousness 2- Awake and alert oriented x 3 Consciousness 2- Awake and alert oriented x 3 O2 Saturation 2- Able to maintain O2 satruation of 92% on room air O2 Saturation 2- Able to maintain O2 satruation of 92% on room air Respiratory 2- Able to deep breathe and cough well Respiratory 2- Able to deep breathe and cough well Total Score 10 Total Score 10 Contrast Agent: Isovue Diagnostic Contrast: 77 ml Total Contrast: 77 ml Fluoro Dose: 68 mGy Procedure Log Time Note Enter By 09:31 AM CathStat 10:10 AM 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 Informed consent was obtained. scoates 10:27 AM Procedure start 10:27 scoates 10: AM ASA Class CLASS II- Mild systemic disease (i.e. well-controlled diabetes, hypertension, asthma, cigarette smoking) scoates 10:27 AM Time: : Patient comfortable and pain free: Yes scoates 10:27 AM Time: 10:27LOC: 5 = Fully awake and oriented or at pre-proc level scoates 10:27 AM Elina Walton RN Position: Monitor Time in: : scoates 10: AM Kiet Lamar RN Position: Documentation Manager Time in: :27 scoates 10: AM Sara Eaton RT Position: Scrub Time in: : scoates 10: AM Patient charges- Angio tray pack, Navilyst 3mm J, Pulse Oximetry and ACIST tubing and transducer scoates 10: AM Hair removed from procedure site in procedure lab using clippers. Right wrist and Right groin prepped with Chloraprep by Socorro Banegas RT (R), then patient was draped. Skin intact. scoates : AM Time: : Oxygen on at 2 L/min per nasal cannula by Kiet Lamar RN scoates 10: AM Vitals capture started with the following parameters, Patient=Adult, Interval=5 min, Initial Qbgwwkqc=572 mmHg, Deflation Rate=3 mmHg, Cuff placed on Right Arm 10: AM HR=86 bpm, EKPO=771/95 mmhg, SpO2=93.0 %, Resp=11 B/min, EtCO2=30 mmHg, Comment=afib 10: AM Ever Ford RN Position: Documentation Manager Time in: scoates 10:35 AM HR=65 bpm, ZEKG=037/84 mmhg, SpO2=92.0 %, Resp=20 B/min, Comment=afib 10:35 AM Time: 10:35 Versed 2 mg Intravenous Given by Kiet Lamar RN scoates 10:35 AM Time: 10:35 Fentanyl 50 mcg Intravenous Given by Kiet Lamar RN scoates 10:35 AM Time out was performed according to hospital policy. Conscious sedation and anesthesia was achieved (see medication log with in this report above) scoates 10:36 AM Time: 10:35 0.5 ml Lidocaine 2% to right radial Subcutaneous Given by Artur Wallis MD, [facility] scoates 10:38 AM Pressure channel 1 zeroed. 10:40 AM HR=65 bpm, PPGR=311/80 mmhg, SpO2=92.0 %, Resp=20 B/min, EtCO2=33 mmHg, Comment=afib 10:42 AM Access obtained by percutaneous puncture. 6Fr 11cm Terumo Glidesheath sheath placed in right Radial artery. [id number] scoates 10:42 AM Time: :LOC: 4 = Oriented but drowsy scoates 10:42 AM Time: 10:27 Patient comfortable and pain free: Yes scoates 10:43 AM Time: 10:43 Patient given 1,000 units Heparin, 200 mcg Nitroglycerin, and 2.5 mg Verapamil Intraarterial by Artur Wallis MD, [facility]. This is given to reduce risk of vessel spasm and thrombosis. scoates 10:44 AM 5Fr TIG catheter inserted over the wire DN scoates 10:45 AM HR=67 bpm, UPBE=584/72 mmhg, SpO2=87.0 %, Resp=23 B/min, EtCO2=27 mmHg, Comment=sr 10:45 AM Recorded Pressure: Ao, QS=148, Condition=Condition 1 (Aorta) Ao 80/58/69 10:45 AM NIBP STAT measurement started. 10:46 AM HR=89 bpm, BLRV=217/68 mmhg, SpO2=89.0 %, Resp=26 B/min, Comment=afib 10:47 AM RCA angiography performed in multiple views. scoates 10:48 AM Coronary Dominance: right scoates 10:48 AM Catheter removed scoates 10:49 AM 5Fr FL3.5 catheter inserted over the wire [id number] scoates 10:50 AM HR=86 bpm, BUBZ=610/66 mmhg, SpO2=89.0 %, Resp=20 B/min, Comment=afib 10:50 AM LCA angiography performed in multiple views. scoates 10:51 AM Lesion found in Proximal RCA. Pre Stenosis: 20 Pre GHISLAINE Flow: scoates 10:51 AM Lesion found in Mid RCA. Pre Stenosis: 20 Pre GHISLAINE Flow: scoates 10:51 AM Lesion found in Distal RCA. Pre Stenosis: 20 Pre GHISLAINE Flow: scoates 10:51 AM Recorded Pressure: Ao, LO=130, Condition=Condition 1 (Aorta) Ao 87/60/73 10:51 AM Catheter removed scoates 10:51 AM 5Fr Pigtail catheter inserted over the wire DN scoates 10:52 AM Recorded Pressure: LV, HR=86, Condition=Condition 1 (Left Ventricle) LV 94/-1/5 10:53 AM Pressure channel 1 zeroed. 10:53 AM Recorded Pressure: LV, Ao, HR=91, Condition=Condition 1 (Left Ventricle) LV 111/23/24, (Aorta) Ao 121/75/98 10:54 AM Catheter crossed the aortic valve and was selectively placed in the left ventricle. Pressures recorded on pullback for left heart catheterization. scoates 10:54 AM Bolus angiogram of left Ventricle complete: 12 ml/sec for a total of 30 mls scoates 10:55 AM Catheter removed scoates 10:55 AM Coronary Dominance: right scoates 10:55 AM HR=86 bpm, MSGA=843/82 mmhg, SpO2=91.0 %, Resp=21 B/min, Comment=afib 10:55 AM Procedure completed at 10:55 01/10/2019 scoates 10:58 AM Time: 10:42 Patient comfortable and pain free: Yes scoates 10:58 AM Time: 10:42LOC: 4 = Oriented but drowsy scoates 10:58 AM What is the NYHA Class? Class 2 scoates 10:58 AM Did you address GHISLAINE flow and Dominance? Yes scoates 11:00 AM Sign out completed: Radiation Dose 699 mGy, 67.59 Gy/cm2 Fluoro Time: 2 Isovue 370 - 200ml contrast 77 ml given by Artur Wallis MD, FACC. Complications: None. 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 Sedation minutes 24. Cardiac Rehab Consult needed: No. Confirmed administered medications: Yes scoates 11:00 AM Isovue 370 - 200ml,1 Bottle(s) used. scoates 11:00 AM Arterial sheath pulled, Vasc Band closure device used and was Successful S/N. scoates 11:00 AM Estimated Blood Loss: minimal scoates 11:00 AM 12 ml air in Vasc Band. scoates 11:01 AM Estimated Blood Loss: minimal scoates 11:02 AM Post ECG Atrial Fibrillation scoates 11:02 AM Post Blood Pressure 124/82 scoates 11:02 AM 11:02 Post Pulses Rt Radial 1+ scoates 11:03 AM Information taught Cardiac Cath and Vasc Band scoates 11:03 AM Education needs Procedure, Plan of Care, and Responsibilities of Patient in Care scoates 11:03 AM Learning barriers :None scoates 11:03 AM Education Methods Verbal scoates 11:03 AM Education evaluation Able to repeat information scoates 11:03 AM Site status No bleeding/hematoma - Rt Wrist as reported by Sara Eaton RT at 11:03 scoates 11:03 AM Report given to Raegan MOTT Pt taken to 2NE Room #24. 11:03 scoates 11:03 AM Plavix, Effient or Brilinta given No scoates 11:03 AM Delay to floor No scoates 11:03 AM Patient out of room: 11:03 scoates 11:04 AM Family placed in not present at this time. scoates 11:04 AM Complications: None scoates 11:06 AM Right Coronary, Right Posterior Descending Arteries with Right Posterolateral and Acute Marginal branches with 20 % stenosis. If graft is supplying this area, 0 % stenosis scoates Complications Complication None None Hemodynamics Pressures Site Systolic/A Wave Diastolic/V Wave Mean AO 80 58 69 AO 87 60 73 LV 94 -1 5 LV 111 23 24 AO 121 75 98 Post Procedure Information Blood Pressure: 124/82 mmHg Rhythm: Atrial Fibrillation Post procedural instructions were given Closure Device Time Device Success/Fail 01/10/2019 11:00:00 AM Mechanical Compression Successful Site Checks Time Location Status Staff Sheath In? Note 11:03 AM Rt Wrist No bleeding/hematoma Sara Eaton RT Pulses Time Site Pre-Procedure Post-Procedure Note 01/10/2019 10:26:00 AM Bilateral DP & PT 2+ 01/10/2019 10:26:00 AM Bilateral radial 2+ 11:02:00 AM Rt Radial 1+ Updated by Elina Oneill RN on 01/10/2019 11:08:34 AM electronically signed on 01/10/2019 11:10:15 AM with status of Final
--- NOTE | 2019-01-10 14:21 | Electrocardiograph Report ---
[place] [address] Test Date: 2019-01-08 Pat Name: Porter Castro Department: EXAM10 Room: 2NE24 Gender: M Crank Hand: : 1945 Requested By: Boby Rodgers Order Number: [id number] Reading MD: Chiara Gillespie Measurements Intervals Burns Rate: 68 P: [place]: QRS: -59 QRSD: 169 T: 66 QT: 431 QTc: 459 Interpretive Statements Atrial flutter Ventricular premature complex RBBB and LAFB Electronically Signed On 01-10-2019 14:19:23 EDT by Chiara Gillespie
[2019-01-10] MEDS: Warfarin perPT PO SCH (17:15)
[2019-01-10] MEDS ORDERED: *HR* Warfarin 5 MG TABLET PO ONE (18:00)
[2019-01-11] MEDS: Heparin 25,000 UNIT/250 ML D5W 25,000 UNIT/250 ML IV.SOLN IVC SCH ×2 (03:04→18:13)
[2019-01-11] MEDS: Budesonide/Formoterol 80/4.5 MDI IH SCH ×2 (07:40→20:20)
[2019-01-11] MEDS: Metoprolol XL (24 HR) Succ 25 MG TAB.ER.24H PO SCH (07:58)
[2019-01-11] MEDS: hydroCHLOROthiazide 25 MG TABLET PO SCH (07:58)
[2019-01-11] MEDS: Aspirin Enteric Coated 81 MG Tablet PO SCH (07:58)
[2019-01-11] MEDS: Cholecalciferol (D-3) 1,000 UNIT TABLET PO SCH (07:58)
[2019-01-11] MEDS: Gabapentin 300 MG CAPSULE PO SCH ×2 (07:58→20:26)
[2019-01-11] MEDS: Insulin LISPRO 300 UNITS/3 ML VIAL SQ SCH ×4 (07:59→20:38)
[2019-01-11 08:43] LABS: INR 1.1; Prothrombin Time 12.3 Seconds (9.4-12.1)
--- NOTE | 2019-01-11 09:25 | Event Note ---
Date of Encounter: 01/11/19 Time of Encounter: 09:24 - Cardiology Event Note Pt A-Flutter at bedside. 12 hr tele AVG HR 78, A-Flutter. On my exam, HR fluctuating up to 130s. Per previous notes, NICMP thought to be tachycardia induced, recommend FORREST/DCCV tomorrow in attempt to restore SR. R/B/A discussed. Pt agrees to proceed. NPO after midnight tonight.
--- NOTE | 2019-01-11 10:15 | Internal Med Progress Note ---
Hospitalist Progress Note - Encounter Date of Encounter: 01/11/19 Time of Encounter: 11:00 - Subjective Interval History: Cardiology with recommendations for FORREST/DCCV on 01/12/19 - Exam Vitals: Temp Pulse Resp BP Pulse Ox 97.6 F 73 14 110/70 95 01/11/19 06:43 01/11/19 06:43 01/11/19 07:40 01/11/19 06:43 01/11/19 07:40 Exam: Gen.: Nonacute distress, alert and oriented 3 ENT: Mucosal membranes moist Respiratory: Lungs are clear to auscultation bilaterally without any wheezing rhonchi or rales Cardiovascular: Normal S1 and S2 regular rate rhythm no murmurs rubs or gallops Abdomen: Soft, nontender and nondistended with positive bowel sounds Extremities: No lower extremity edema Skin: Normal color . - Assessment and Plan (1) Atrial fibrillation and flutter Current Visit: Yes Status: Acute Assessment and Plan: Patient started on Coumadin and being bridged with heparin due to new onset of A. fib ([id number] Score 5). Cardiology following with recommendations for FORREST/DCCV on 01/12/19 (2) Acute systolic heart failure Current Visit: Yes Status: Acute Assessment and Plan: Echocardiogram showed LVEF of 35% with moderate global left ventricular systolic dysfunction Cardiology with recommendations for left heart catheterization which showed mild CAD therefore no intervention warranted. As a result, further recommendations per cardiology for patient to obtain FORREST/DCCV as above. (3) HTN (hypertension) Current Visit: No Status: Chronic Assessment and Plan: Continue beta howard and ARB (4) Diabetes mellitus Current Visit: Yes Status: Chronic Assessment and Plan: Continue insulin sliding scale. (5) Hyperlipidemia Current Visit: No Status: Chronic Assessment and Plan: Continue statin (6) History of partial thyroidectomy Current Visit: Yes Status: Acute Assessment and Plan: Patient with a TSH of 0.301 therefore was started on a low dose of levothyroxine (7) CHASIDY on CPAP Current Visit: Yes Status: Chronic Assessment and Plan: CPAP at night (8) Morbid obesity with BMI of 40.0-44.9, adult Current Visit: Yes Status: Chronic Assessment and Plan: BMI of 43.8 DVT Prophylaxis: Patient actively being bridged with heparin on Coumadin - Time Spent with Patient Total time spent is greater than 50% in coordination of care (as documented) at patient's floor/unit and/or counseling patient: Internal Medicine: Result - Labs CBC & Chem 7: 01/11/19 10:54 01/11/19 10:54 - ABG Interpretation ABG results: PT/INR, D-dimer PT 12.3 Seconds (9.4-12.1) H 01/11/19 07:57 Consult Discharge Plan - Plan [facility]errals: [facility] [Primary Care Provider[facility] - (3) HTN (hypertension) Qualifiers: Hypertension type: essential hypertension Qualified Code(s): I10 - Essential (primary) hypertension (4) Diabetes mellitus Qualifiers: Diabetes mellitus type: type 2 Diabetes mellitus manager intermediate insulin use: without manager intermediate use Diabetes mellitus complication status: with unspecified complications Qualified Code(s): E11.8 - Type 2 diabetes mellitus with unspecified complications (5) Hyperlipidemia Qualifiers: Hyperlipidemia type: unspecified Qualified Code(s): E78.5 - Hyperlipidemia, unspecified
[2019-01-11 11:28] LABS: Basophils % 0.3 %; Eosinophils % 0.3 %; Hematocrit 40.4 % (37.5-50.1); Hemoglobin 13.4 g/dL (12.9-16.9); Immature Granulocytes % 0.4 % (0-4); Lymphocytes # 1.3 K/mcL (0.6-4.6); Lymphocytes % 17.6 %; Mean Corpuscular HGB Conc 33.2 g/dL (31.6-35.5); Mean Corpuscular Hemoglobin 30.2 pg (28.0-33.3); Mean Platelet Volume 11.2 fL (9.4-12.4); Monocytes % 13.9 %; Neutrophils # 4.9 K/mcL (1.6-8.9); Platelet Count 245 K/mcL (140-400); Red Blood Count 4.44 M/mcL (4.19-5.50); Red Cell Distribution Width 13.6 % (11.5-14.5); Segmented Neutrophils % 67.5 %
[2019-01-11 11:32] LABS: BUN/Creatinine Ratio 14 (6-26); Blood Urea Nitrogen 12 mg/dL (8-23); Calcium 9.5 mg/dL (8.6-10.3); Carbon Dioxide 29 mEq/L (23-29); Chloride 100 mEq/L (98-107); Glucose 201 mg/dL (70-105); Osmolality,Calculated 287 (280-300); Sodium 136 mEq/L (136-145); eGFR For Non-African Americans > 60 (> 60)
[2019-01-11] MEDS: Warfarin perPT PO SCH (17:36)
[2019-01-11] MEDS ORDERED: *HR* Warfarin 5 MG TABLET PO ONE (18:00)
[2019-01-12] MEDS: Heparin 25,000 UNIT/250 ML D5W 25,000 UNIT/250 ML IV.SOLN IVC SCH (07:19)
[2019-01-12] MEDS ORDERED: 0.9 % Sodium Chloride 500 ML IVC ONE (07:51)
[2019-01-12] MEDS ORDERED: Lidocaine Viscous Oral Soln 15 ML SOLUTION MM PRN (07:51)
[2019-01-12] MEDS ORDERED: *HR* Midazolam HCl 2 MG/2 ML VIAL IVP PRN (07:51)
[2019-01-12] MEDS ORDERED: *HR* Midazolam HCl 5 MG/5 ML VIAL IVP ONE ×2 (08:03)
[2019-01-12] MEDS: *HR* FentaNYL (PF) 100 MCG/2 ML VIAL IVP PRN ×2 (08:20→08:45)
[2019-01-12] MEDS: Gabapentin 300 MG CAPSULE PO SCH ×2 (09:43→21:15)
[2019-01-12] MEDS: Cholecalciferol (D-3) 1,000 UNIT TABLET PO SCH (09:44)
[2019-01-12] MEDS: hydroCHLOROthiazide 25 MG TABLET PO SCH (09:44)
[2019-01-12] MEDS: Aspirin Enteric Coated 81 MG Tablet PO SCH (09:44)
[2019-01-12] MEDS: Metoprolol XL (24 HR) Succ 25 MG TAB.ER.24H PO SCH (09:46)
[2019-01-12] MEDS: Insulin LISPRO 300 UNITS/3 ML VIAL SQ SCH ×4 (09:46→21:16)
[2019-01-12] MEDS: Budesonide/Formoterol 80/4.5 MDI IH SCH ×2 (10:27→19:30)
--- NOTE | 2019-01-12 10:41 | Event Note ---
Date of Encounter: 01/12/19 Time of Encounter: 10:39 - Cardiology Event Note Successful FORREST/DCCV to SR this AM. HR 80s, SR at bedside. NICMP EF 35%. Continue BB and ARB. Plan to repeat TTE as outpt. Started on Coumadin and currently on heparin gtt for bridging. Pt needs bridged until therapeutic given DCCV. Okay from cardiology if pt is d/c'd home with therapeutic Lovenox 1mg/kg BID until INR is therapeutic. Will coordinate follow-up with [facility] for INR management. Cardiology signing off. Reconsult PRN. Will coordinate outpt follow- up in 2-3 weeks.
[2019-01-12 13:24] LABS: INR 1.1; Prothrombin Time 12.9 Seconds (9.4-12.1)
[2019-01-12 13:48] LABS: Basophils % 0.1 %; Eosinophils % 0.1 %; Hematocrit 41.7 % (37.5-50.1); Hemoglobin 13.8 g/dL (12.9-16.9); Immature Granulocytes % 0.4 % (0-4); Lymphocytes # 1.5 K/mcL (0.6-4.6); Lymphocytes % 20.4 %; Mean Corpuscular HGB Conc 33.1 g/dL (31.6-35.5); Mean Corpuscular Hemoglobin 29.8 pg (28.0-33.3); Mean Corpuscular Volume 90.1 fL (83.0-100.0); Mean Platelet Volume 11.6 fL (9.4-12.4); Neutrophils # 4.9 K/mcL (1.6-8.9); Platelet Count 251 K/mcL (140-400); Red Blood Count 4.63 M/mcL (4.19-5.50); Red Cell Distribution Width 13.7 % (11.5-14.5)
[2019-01-12 16:57] LABS: BUN/Creatinine Ratio 21 (6-26); Blood Urea Nitrogen 16 mg/dL (8-23); Calcium 9.7 mg/dL (8.6-10.3); Carbon Dioxide 25 mEq/L (23-29); Chloride 101 mEq/L (98-107); Glucose 180 mg/dL (70-105); Osmolality,Calculated 286 (280-300); Potassium 4.3 mEq/L (3.5-5.1); Sodium 135 mEq/L (136-145); eGFR For Non-African Americans > 60 (> 60)
[2019-01-12] MEDS ORDERED: *HR* Warfarin 7.5 MG TABLET PO ONE (18:00)
[2019-01-12] MEDS: *HR* Enoxaparin 150 MG/ML SYRINGE SQ SCH (18:52)
--- NOTE | 2019-01-12 19:11 | Internal Med Progress Note ---
Hospitalist Progress Note - Encounter Date of Encounter: 01/12/19 Time of Encounter: 11:00 - Subjective Interval History: Patient underwent successful FORREST/DCCV to sinus rhythm Awaiting approval from [place] for Lovenox to bridge with Coumadin Anticipate discharge on 01/13/19 - Exam Vitals: Temp Pulse Resp BP Pulse Ox 97.4 F L 85 20 108/73 89 01/12/19 16:18 01/12/19 16:07 01/12/19 16:07 01/12/19 16:07 01/12/19 16:07 Exam: Gen.: Nonacute distress, alert and oriented 3 ENT: Mucosal membranes moist Respiratory: Lungs are clear to auscultation bilaterally without any wheezing rhonchi or rales Cardiovascular: Normal S1 and S2 regular rate rhythm no murmurs rubs or gallops Abdomen: Soft, nontender and nondistended with positive bowel sounds Extremities: No lower extremity edema Skin: Normal color . - Assessment and Plan (1) Atrial fibrillation and flutter Current Visit: Yes Status: Acute Assessment and Plan: Patient started on Coumadin and being bridged with heparin due to new onset of A. fib ([id number] Score 5). Patient underwent successful FORREST/DCCV to sinus rhythm Awaiting approval from [place] for Lovenox to bridge with Coumadin Anticipate discharge on 01/13/19 (2) Acute systolic heart failure Current Visit: Yes Status: Acute Assessment and Plan: Echocardiogram showed LVEF of 35% with moderate global left ventricular systolic dysfunction Cardiology with recommendations for left heart catheterization which showed mild CAD therefore no intervention warranted. (3) HTN (hypertension) Current Visit: No Status: Chronic Assessment and Plan: Continue beta howard and ARB (4) Diabetes mellitus Current Visit: Yes Status: Chronic Assessment and Plan: Continue insulin sliding scale. (5) Hyperlipidemia Current Visit: No Status: Chronic Assessment and Plan: Continue statin (6) History of partial thyroidectomy Current Visit: Yes Status: Acute Assessment and Plan: Patient with a TSH of 0.301 therefore was started on a low dose of levothyroxine (7) CHASIDY on CPAP Current Visit: Yes Status: Chronic Assessment and Plan: CPAP at night (8) Morbid obesity with BMI of 40.0-44.9, adult Current Visit: Yes Status: Chronic Assessment and Plan: BMI of 43.8 DVT Prophylaxis: Patient actively being bridged with heparin on Coumadin - Time Spent with Patient Total time spent is greater than 50% in coordination of care (as documented) at patient's floor/unit and/or counseling patient: Internal Medicine: Result - Labs CBC & Chem 7: 01/12/19 12:46 01/12/19 12:46 Labs: Short CBC 01/12/19 Range/Units 12:46 WBC 7.4 (4.3-11.1) K/mcL Hgb 13.8 (12.9-16.9) g/dL Hct 41.7 (37.5-50.1) % Plt Count 251 (140-400) K/mcL Neutrophils # 4.9 (1.6-8.9) K/mcL BMP 01/12/19 12:46 Sodium 135 L Potassium 4.3 Chloride 101 Carbon Dioxide 25 BUN 16 Creatinine 0.78 Glucose 180 H Calcium 9.7 - ABG Interpretation ABG results: PT/INR, D-dimer PT 12.9 Seconds (9.4-12.1) H 01/12/19 12:46 - Impressions Impressions Transesophageal w/Cardioversion 01/12/19 09:26 Impressions: Successful direct current cardioversion of atrial flutter. No thrombus in LA or JUDY. Severe global LV hypokinesis, LVEF 15-20% Moderate RV systolic dysfunction. Severely dilated LA, moderately dilated RA. Mild mitral regurgitation. Mild-moderate tricuspid regurgitation. Left Ventricular Wall Motion: Transesophageal Echo Findings The apex, apical lateral, apical inferior, apical septal, apical anterior, mid anterior lateral, mid inferior lateral, mid inferior, mid inferior septal, mid anterior septal, basal anterior lateral, basal inferior lateral, basal inferior, basal inferior septal, basal anterior septal, basal anterior and mid anterior balderas were hypokinetic. Medication Given: Time Medication Dose Units Route 08:20 Versed 2 mg IV 08:20 Fentanyl 50 mcg IV 08:45 Versed 1 mg IV 08:45 Fentanyl 50 mcg IV Contrast Type Amount Agitated saline 10 Findings: Study Quality * Technically adequate exam. ECG Findings * Flutter with Bundle Branch Block, RVR. Left Ventricle * LVEF 15-20 % * Normal size. * Severe global hypokinesis. Right Ventricle * The right ventricle was normal in size with moderate systolic dysfunction. Left Atrium * Severely dilated. * No thrombus present. * No thrombus in the LA appendage. * The LA appendage flow velocity is reduced. Interatrial Septum * No evidence of inter-atrial shunting noted with saline contrast. Aortic Valve * Normal structure and function. Mitral Valve * Normal structure. * Mild mitral regurgitation. Tricuspid Valve * Normal structure. * mild-moderate tricuspid regurgitation. Right Atrium * RA is Moderately dilated. Pulmonic Valve * Normal structure. * trivial pulmonic regurgitation. Aorta * The aortic root is not dilated. Pericardium * No pericardial effusion. Pulmonary Artery * Normal pulmonary artery. Pulmonary Veins * Normal flow patterns. Procedure Summary: After explaining the risks, benefits, and alternatives of the procedure to the patient in detail and answering all questions to satisfaction, an informed consent was obtained in writing. The patient was NPO for the six hours prior to the procedure. The patient denied dysphagia, odynophagia, and loose teeth. The patient was monitored with periodic automated blood pressures and continuous pulse oximetry and telemetry. Continuous oxygen was administered by DE. The patient was placed in the full upright position and the posterior oropharynx was anesthetized as above and complete suppression of the gag reflex was obtained. The patient was then placed in the left lateral decubitus position, the neck was flexed, and a bite block was placed in the patient's mouth. IV sedation was administered. Once adequate sedation was achieved, a well-lubricated anteflexed multipoint intraesophageal echocardiographic probe was inserted into the midline posterior oropharynx. Gentle pressure was applied as the patient swallowed and the esophagus was intubated without difficulty. The scope was advanced to the mid esophagus without encountering resistance. Images were obtained from the mid and upper esophagus. Images from the gastric globe were obtained. The intra-atrial septum was assessed by color-flow Doppler and agitated saline. The scope was then rotated approximately 180 degrees and withdrawn, visualizing the length of the aorta. The scope was then slowly withdrawn as the patient was continually suctioned. The patient tolerated the procedure well. Following informed consent , the patient was sedated with versed and fentanyl. After adequate sedation was achieved, cardioversion in the AP approach was successful using 200 Joules of biphasic energy. Sinus rhythm was restored after 1 attempt(s). The patient was monitored for the standard 30 minutes post procedure. Complications: None Consult Discharge Plan - Plan [facility]: [facility] [Primary Care Provider] - Prescriptions: Enoxaparin [Lovenox *PHARMACY WT BASED*] 140 mg SQ Q12HCO #28 mg (3) HTN (hypertension) Qualifiers: Hypertension type: essential hypertension Qualified Code(s): I10 - Essential (primary) hypertension (4) Diabetes mellitus Qualifiers: Diabetes mellitus type: type 2 Diabetes mellitus assisted insulin use: without intermediate project manager use Diabetes mellitus complication status: with unspecified complications Qualified Code(s): E11.8 - Type 2 diabetes mellitus with unspecified complications (5) Hyperlipidemia Qualifiers: Hyperlipidemia type: unspecified Qualified Code(s): E78.5 - Hyperlipidemia, unspecified
[2019-01-12] MEDS: Warfarin perPT PO SCH (20:56)
[2019-01-13] MEDS: *HR* Enoxaparin 150 MG/ML SYRINGE SQ SCH (06:02)
[2019-01-13 06:36] LABS: INR 1.2; Prothrombin Time 13.1 Seconds (9.4-12.1)
[2019-01-13 07:08] VITALS: BP 116/71
[2019-01-13] MEDS: Insulin LISPRO 300 UNITS/3 ML VIAL SQ SCH ×2 (09:05→13:05)
[2019-01-13] MEDS: Aspirin Enteric Coated 81 MG Tablet PO SCH (09:06)
[2019-01-13] MEDS: hydroCHLOROthiazide 25 MG TABLET PO SCH (09:06)
[2019-01-13] MEDS: Gabapentin 300 MG CAPSULE PO SCH (09:06)
[2019-01-13] MEDS: Metoprolol XL (24 HR) Succ 25 MG TAB.ER.24H PO SCH (09:07)
[2019-01-13] MEDS: Cholecalciferol (D-3) 1,000 UNIT TABLET PO SCH (09:07)
[2019-01-13] MEDS: Budesonide/Formoterol 80/4.5 MDI IH SCH (10:43)
--- NOTE | 2019-01-13 14:48 | Discharge Summary ---
- NOTES TO OUTPATIENT PROVIDER Notes to Outpatient Provider: Follow-up with cardiology Orders not resulted at time of discharge: Pending orders 01/13/19 23:00 Heparin anti-factor XA UFH [COAG] Timed 01/14/19 04:00 Prothrombin Time INR [COAG] AM 0400 Date of Encounter: 01/13/19 Time of Encounter: 11:00 - Discharge Diagnosis (1) Atrial fibrillation and flutter Priority: Primary Status: Acute (2) Acute systolic heart failure Priority: Primary Status: Acute (3) HTN (hypertension) Priority: Secondary Status: Chronic Qualifiers: Hypertension type: essential hypertension Qualified Code(s): I10 - Essential (primary) hypertension (4) Diabetes mellitus Priority: Secondary Status: Chronic Qualifiers: Diabetes mellitus type: type 2 Diabetes mellitus terminal make up operator insulin use: without group home use Diabetes mellitus complication status: with unspecified complications Qualified Code(s): E11.8 - Type 2 diabetes mellitus with unspecified complications (5) Hyperlipidemia Priority: Secondary Status: Chronic Qualifiers: Hyperlipidemia type: unspecified Qualified Code(s): E78.5 - Hyperlipidemia, unspecified (6) History of partial thyroidectomy Priority: Secondary Status: Acute (7) CHASIDY on CPAP Priority: Secondary Status: Chronic (8) Morbid obesity with BMI of 40.0-44.9, adult Priority: Secondary Status: Chronic Hospital course: Patient is a 74-year-old male with past medical history significant for hypertension diabetes and obesity who presented sent from the [facility] due to new onset of atrial fibrillation with RVR. Patient was transferred to [facility] for further management. During patients hospital stay cardiology was consulted with recommendations for echocardiogram that showed LVEF of 35% with moderate global left ventricular systolic dysfunction Cardiology with recommendations for left heart catheterization which showed mild CAD therefore no intervention warranted. With patients new onset of A. fib with RVR he was started on Coumadin and will be bridged with lovnox due to new onset of A. fib ([id number] Score 5). Patient underwent successful FORREST/DCCV to sinus rhythm. He will follow-up with cardiology as an outpatient. - Time Spent with Patient Total time spent providing and/or coordinating discharge services: - Discharge Medications Prescriptions: New Enoxaparin [Lovenox *PHARMACY WT BASED*] 140 mg SQ Q12HCO #28 mg Levothyroxine [Synthroid] 50 mcg PO 0630 #30 tablet Warfarin [Coumadin] 7.5 mg PO 1800 #30 tablet Continue hydroCHLOROthiazide [Hydrochlorothiazide] 25 mg PO DAILY Cholecalciferol (D-3) [Vitamin D] 4,000 unit PO DAILY Tamsulosin [Flomax] 0.4 mg PO DAILY Pravastatin Sodium [Pravachol] 20 mg PO DAILY glipiZIDE [Glipizide] 2 tab PO BID Budesonide/Formoterol 80/4.5 [Symbicort 80/4.5] 2 puff IH BID Aspirin [Lo-Dose Aspirin EC] 81 mg PO DAILY Sertraline [Zoloft] 100 mg PO DAILY Losartan Potassium [Cozaar] 50 mg PO DAILY Gabapentin [Gralise] 300 mg PO BID Cyanocobalamin (B-12) [Vitamin B12] 1,000 mcg PO DAILY Metformin HCl 1,000 mg PO BIDWM Metoprolol XL (24 HR) Succ [Toprol Xl] 12.5 mg PO DAILY Urea 1 gm TP BID PRN PRN Reason: SKIN CONDITION Home Medications: Budesonide/Formoterol 80/4.5 [Symbicort 80/4.5] 2 puff IH BID 08/12/17 [History] Cholecalciferol (D-3) [Vitamin D] 4,000 unit PO DAILY 08/12/17 [History] Pravastatin Sodium [Pravachol] 20 mg PO DAILY 08/12/17 [History] Tamsulosin [Flomax] 0.4 mg PO DAILY 08/12/17 [History] glipiZIDE [Glipizide] 2 tab PO BID 08/12/17 [History] hydroCHLOROthiazide [Hydrochlorothiazide] 25 mg PO DAILY 08/12/17 [History] Aspirin [Lo-Dose Aspirin EC] 81 mg PO DAILY 10/28/17 [History] Gabapentin [Gralise] 300 mg PO BID 10/28/17 [History] Losartan Potassium [Cozaar] 50 mg PO DAILY 10/28/17 [History] Sertraline [Zoloft] 100 mg PO DAILY 10/28/17 [History] Cyanocobalamin (B-12) [Vitamin B12] 1,000 mcg PO DAILY 01/08/19 [History] Metformin HCl 1,000 mg PO BIDWM 01/08/19 [History] Metoprolol XL (24 HR) Succ [Toprol Xl] 12.5 mg PO DAILY 01/08/19 [History] Urea 1 gm TP BID PRN 01/08/19 [History] Enoxaparin [Lovenox *PHARMACY WT BASED*] 140 mg SQ Q12HCO #28 mg 01/12/19 [Rx] Levothyroxine [Synthroid] 50 mcg PO 0630 #30 tablet 01/13/19 [Rx] Warfarin [Coumadin] 7.5 mg PO 1800 #30 tablet 01/13/19 [Rx] Allergies/Adverse Reactions: Allergy/AdvReac Type Severity Reaction Status Date / Time No Known Allergies Allergy Verified 12/29/18 13:23 Date of admission: 01/08/19 18:30 Primary care physician: PCP MOOSE Consults: 01/08/19 20:22 Consult to Cardiology [CONS] Routine Comment: Consulting Provider: Cardiology Alisha Reason for Consult: new onset atrial flutter/fibrillation Call Completed: No - Constitutional Vitals: Temp Pulse Resp BP Pulse Ox 97.5 F L 68 20 116/71 95 01/13/19 07:05 01/13/19 07:05 01/13/19 10:45 01/13/19 07:05 01/13/19 10:45 Exam: Gen.: Nonacute distress, alert and oriented 3 Skin: Normal color . - Patient Status Disposition: Home, Self-Care Condition: Fair - Discharge Instructions Instructions: Levothyroxine (By mouth), Warfarin (By mouth), Enoxaparin (Injection), Atrial Fibrillation (DC), Atrial Fibrillation (GEN), Diabetes Mellitus Type 2 in Adults (DC), Chronic Hypertension (DC) Follow Up With: MOOSEPCP [Primary Care Provider] - 01/21/19 11:00 am Forms: ED Satisfaction Letter
[2019-01-13] MEDS ORDERED: *HR* Warfarin 7.5 MG TABLET PO ONE (18:00)
--- NOTE | 2019-01-15 10:23 | Electrocardiograph Report ---
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
--- NOTE | 2019-01-15 10:25 | Electrocardiograph Report ---
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
--- NOTE | 2019-01-15 16:27 | Electrocardiograph Report ---
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
== END 2019-01-13 16:31 | disposition home or self-care (01) ==
LOC: EMEROOARM 17:20 → 2NENU 17:20 → SUATTDRO 18:30 → 2NENU 20:32
PROVIDERS: ADMIT Internal Medicine; ATTEND Hospitalist